=== PATIENT | male | born 1980 | race Caucasian/White ===

== ENCOUNTER 2018-09-02 16:03 | Emergency (ER) | payer BC ==
[2018-09-02 16:45] VITALS: BP 121/70
--- NOTE | 2018-09-02 17:04 | ED ---
Respiratory - HPI Summary HPI Summary: right sided otalgia for the last 24 hours, cough for the last several days. nonsmoker, no fever, no recent antibiotics - History of Current Complaint Chief Complaint: UCRespiratory Stated Complaint: RIGHT EAR CONCERN Time Seen by Provider: 09/02/18 16:56 Hx Obtained From: Patient Onset/Duration: Sudden Onset Initial Severity: Severe Current Severity: Moderate Pain Intensity: 0 Character: Cough (Nonproductive) Sputum Amount: None - Allergy/Home Medications Allergies/Adverse Reactions: Allergies Allergy/AdvReac Type Severity Reaction Status Date / Time No Known Allergies Allergy Verified 09/02/18 16:46 Home Medications: Home Medications Ibuprofen 400 mg PO ONCE PRN 09/02/18 [History Confirmed 09/02/18] Primidone 50 mg PO BEDTIME 09/02/18 [History Confirmed 09/02/18] PMH/Surg Hx/FS Hx/Imm Hx Previously Healthy: Yes Endocrine/Hematology History: Denies: Hx Diabetes Cardiovascular History: Denies: Hx Hypertension Respiratory History: Denies: Hx Asthma Neurological History: Reports: Other Neuro Impairments/Disorders - essential tremor - Surgical History Surgery Procedure, Year, and Place: thymus partially removed at age 10 Infectious Disease History: No Infectious Disease History: Denies: Traveled Outside the [place] in Last 30 Days - Social History Alcohol Use: Rare Substance Use Type: Reports: None Smoking Status (MU): Never Smoked Tobacco Review of Systems Eyes: Negative ENT: Other - right sided otalgia Cardiovascular: Negative Positive: Cough Positive: Abdominal Pain Musculoskeletal: Negative Skin: Negative All Other Systems Reviewed And Are Negative: Yes Physical Exam Triage Information Reviewed: Yes Vital Signs On Initial Exam: Initial Vitals Temp Pulse Resp BP Pulse Ox 36.6 C 96 16 121/70 96 09/02/18 16:41 09/02/18 16:41 09/02/18 16:41 09/02/18 16:41 09/02/18 16:41 Vital Signs Reviewed: Yes Appearance: Positive: Pain Distress Skin: Positive: Warm Head/Face: Positive: Normal Head/Face Inspection Eyes: Positive: Normal ENT: Positive: TM red - right sided otitis media Neck: Positive: Supple Respiratory/Lung Sounds: Positive: Clear to Auscultation Cardiovascular: Positive: Normal Diagnostics - Vital Signs Vital Signs Temp Pulse Resp BP Pulse Ox 09/02/18 16:41 36.6 C 96 16 121/70 96 - Laboratory Lab Statement: Any lab studies that have been ordered have been reviewed, and results considered in the medical decision making process. Disposition - Diagnoses Provider Diagnoses: Otitis media Discharge - Sign-Out/Discharge Documenting (check all that apply): Patient Departure All imaging exams completed and their final reports reviewed: No Studies - Discharge Plan Condition: Fair Disposition: HOME Prescriptions: Amoxicillin PO (*) [Amoxicillin 875 MG (*)] 875 mg PO BID #20 tab Fluticasone NASAL SPRAY 50MCG* [Flonase NASAL SPRAY 50MCG*] 2 spray BOTH NARES DAILY #1 btl Patient Education Materials: Ear Infection (ED) Referrals: Mj Espinoza DO [Primary Care Provider] - - Billing Disposition and Condition Condition: FAIR Disposition: Home
== END 2018-09-02 17:11 | disposition home or self-care (01) ==
LOC: UCCORT 16:03
DX: H66.91 Otitis media, unspecified, right ear (principal)
CPT/HCPCS: 99202; G0463